=== PATIENT | female | born 1965 | race Caucasian/White ===

== ENCOUNTER 2017-01-17 10:26 | Emergency (ER) | payer OTHER ==
[2017-01-17] MEDS ORDERED: Sodium Chloride 0.9% 1000 ML 1,000 ML IV STA (10:37)
--- NOTE | 2017-01-17 10:42 | ERPHSYRPT ---
- History of Present Illness Time Seen by Provider: 01/17/17 10:40 Source: patient Exam Limitations: no limitations Physician History: elevated blood sugar today, over 600 at home, changed her insulin pump yesterday , no fever, no pain, no NV, not dizzy Allergies/Adverse Reactions: No Known Drug Allergies Allergy (Unverified 01/17/17 10:47) Home Medications: Aspirin EC 81 mg [Ecotrin 81 mg] 81 mg PO DAILY 01/17/17 [History] Biotin 5 mg PO DAILY 01/17/17 [History] Cholecalciferol (Vitamin D3) [D-1999] 2,000 unit PO DAILY 01/17/17 [History] Duloxetine HCl 30 mg [Cymbalta 30 MG Capsule] 30 mg PO DAILY 01/17/17 [ History] Ferrous Sulfate [Iron] 325 mg PO DAILY 01/17/17 [History] Omeprazole 20 MG [Prilosec 20 mg] 20 mg PO DAILY 01/17/17 [History] Ramipril 5 mg [Altace 5 MG] 10 mg PO DAILY 01/17/17 [History] - Review of Systems Constitutional: No Fever Eyes: No Symptoms Ears, Nose, & Throat: No Symptoms Respiratory: No Symptoms Cardiac: No Symptoms Abdominal/Gastrointestinal: No Symptoms Musculoskeletal: No Symptoms Skin: No Symptoms Neurological: No Symptoms Psychological: No Symptoms - Past Medical History Pertinent Past Medical History: Yes Endocrine Medical History: Diabetes Type I - Nursing Vital Signs Nursing Vital Signs: Initial Vital Signs Temperature 97.8 F 01/17/17 10:34 Pulse Rate 96 H 01/17/17 10:34 Respiratory Rate 18 01/17/17 10:34 Blood Pressure 174/107 01/17/17 10:34 O2 Sat by Pulse Oximetry 100 01/17/17 10:34 Pain Scale Pain Intensity 0 - Physical Exam General Appearance: no apparent distress Eye Exam: eyes nml inspection Ears, Nose, Throat Exam: moist mucous membranes Neck Exam: normal inspection Respiratory Exam: No respiratory distress Gastrointestinal/Abdomen Exam: No tenderness Extremity Exam: normal range of motion Neurologic Exam: alert, oriented x 3, cooperative Skin Exam: normal color, warm, dry - Course Nursing assessment & vital signs reviewed: Yes Ordered Tests: Active Orders 24 hr Category Date Time Status ACCUCHECK [Accucheck] STAT Care 01/17/17 10:48 Active IV Insertion STAT Care 01/17/17 10:37 Active CMP Stat Lab 01/17/17 10:50 Completed VENOUS BLOOD GAS Urgent Lab 01/17/17 10:45 Completed Medication Summary Discontinued Medications Generic Name Dose Route Start Last Admin Trade Name Ori PRN Reason Stop Dose Admin Sodium Chloride 1,000 mls @ 999 mls/hr 01/17/17 10:37 01/17/17 11:05 Sodium Chloride 0.9% 1000 Ml IV 01/17/17 11:37 999 mls/hr .Q1H1M STA Administration Sodium Chloride Confirm 01/17/17 10:56 Sodium Chloride 0.9% 1000 Ml Administered 01/17/17 10:57 Dose 1,000 mls @ ud .ROUTE .[facility] ONE Insulin Human Regular 5 unit 01/17/17 11:32 01/17/17 11:53 Novolin R IV 01/17/17 11:33 5 unit STAT ONE Administration Insulin Human Regular Confirm 01/17/17 11:39 Novolin R Administered 01/17/17 11:40 Dose 5 unit .ROUTE .STK-MED ONE Lab/Rad Data: Laboratory Result Diagrams 01/17/17 10:50 Laboratory Results 01/17/17 01/17/17 Range/Units 10:50 10:45 VBG pH 7.34 (7.32-7.42) VBG pCO2 at Pat Temp 55 (42-55) mm/Hg VBG pO2 at Pat Temp 25 (25-40) mm/Hg VBG HCO3 29.7 H* (22-28) meq/L VBG O2 Sat (Tana) 54.8 L (95-100) VBG Base Excess 2.8 H (-2.0-2.0) VBG Hemoglobin 12.5 VBG Carboxyhemoglobin 2.8 (0.0-6.9) % T HGB POC Potassium 5.2 H (3.5-5.1) Sodium 128 L (136-145) mEq/L Potassium 5.0 (3.5-5.1) mEq/L Chloride 89 L (98-107) mEq/L Carbon Dioxide 29.4 (21-32) mEq/L Anion Gap 14.4 (5-15) MEQ/L BUN 17 (9-20) mg/dL Creatinine 1.14 (0.55-1.30) mg/dl Estimated GFR 54 ML/MIN Glucose 711 H* (70-110) MG/DL Calcium 8.9 (8.5-10.1) mg/dL Total Bilirubin 0.30 (0.2-1.0) mg/dL AST 30 (15-37) U/L ALT 60 (12-78) U/L Alkaline Phosphatase 191 H (46-116) U/L Serum Total Protein 7.9 (6.4-8.2) gm/dL Albumin 3.8 (3.4-5.0) g/dL - Progress Progress: improved Discussed with : Mike Will see patient in: office Counseled pt/family regarding: lab results, diagnosis, need for follow-up - Departure Time of Disposition: 13:43 Departure Disposition: Home Clinical Impression: Hyperglycemia Condition: Stable Critical Care Time: No Referrals: ANDERSON CANNON [Primary Care Provider] - Instructions: Hyperglycemia -- Adult Additional Instructions: see your doctor, return if worse, continue present medical regimen
[2017-01-17 10:51] LABS: VBG BASE EXCESS 2.8 (-2.0-2.0); VBG CARBOXYHEMOGLOBIN 2.8 % T HGB (0.0-6.9); VBG HCO3- 29.7 meq/L (22-28); VBG HEMOGLOBIN 12.5; VBG O2 SATURATION 54.8 (95-100); VBG POTASSIUM 5.2 (3.5-5.1); VBG pH 7.34 (7.32-7.42)
[2017-01-17] MEDS ORDERED: Sodium Chloride 0.9% 1000 ML 1,000 ML ONE (10:56)
[2017-01-17 11:20] LABS: ALBUMIN 3.8 g/dL (3.4-5.0); ANION GAP 14.4 MEQ/L (5-15); BILIRUBIN,TOTAL 0.3 mg/dL (0.2-1.0); Carbon Dioxide 29.4 mEq/L (21-32); Total Protein 7.9 gm/dL (6.4-8.2)
[2017-01-17] MEDS ORDERED: NovoLIN R IV ONE (11:32)
[2017-01-17] MEDS ORDERED: NovoLIN R ONE (11:39)
[2017-01-17 14:12] VITALS: BP 126/61; PULSE 92; O2SAT 98
== END 2017-01-17 14:04 | disposition home or self-care (01) ==
LOC: ED 10:26
DX: E10.65 Type 1 diabetes mellitus with hyperglycemia (principal); Z96.41 Presence of insulin pump (external) (internal)
CPT/HCPCS: 36000; 36415; 80053; 82805; 82962; 96360; 96374; 99284; A9270-GY

== ENCOUNTER 2020-02-16 08:16 | Emergency (ER) | payer OTHER ==
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
[2020-02-16 08:56] LABS: Absolute Neutrophil Ct (ANC) 3.45 (1.4-6.9); BASOPHIL % 0.3 % (0.0-0.4); Basophil (Absolute #) 0.02 (0-0.4); Eosinophil % 10.4 % (0.00-5.0); Hematocrit 41.5 % (35-47); Hemoglobin 13.4 gm/dl (12.0-16.0); Lymphocyte (Absolute #) 1.11 (1.0-4.6); Lymphocytes % 19.3 % (24.0-44.0); Mean Cell Volume 87.4 fl (78-100); Mean Corpuscular Hemoglobin 28.2 pg (26-32); Mean Corpuscular Hgb Concent. 32.3 g/dl (32-36); Mean Platelet Volume 9.8 fl (7.5-11.0); Monocyte (Absolute #) 0.58 (0.0-1.3); Monocytes % 10.1 % (0.0-12.0); Neutrophil % 59.9 % (36.0-66.0); Platelet Count 344 K/mm3 (150-450); Red Blood Count 4.75 M/mm3 (4.1-5.4); Red Cell Distribution Width 13.4 % (11.5-14.0); White Blood Count 5.8 K/mm3 (4.0-10.5)
[2020-02-16 09:04] LABS: ALBUMIN 3.8 g/dL (3.5-5.0); ALKALINE PHOSPHATASE 94 U/L (38-126); ANION GAP 9.2 MEQ/L (5-15); BLOOD UREA NITROGEN 16 mg/dL (7-17); CHLORIDE 96 mmol/L (98-107); Calcium 9.2 mg/dL (8.4-10.2); Carbon Dioxide 33 mmol/L (22-30); Creatinine 1 0.54 mg/dL (0.52-1.04); EST GLOMERULAR FILTRATION RATE > 60.0 ML/MIN; Glucose 317 mg/dL (74-106); Potassium 4.7 mmol/L (3.5-5.1); SGOT/AST 40 U/L (14-36); SGPT/ALT 38 U/L (0-35); SODIUM 134 mmol/L (137-145); Total Protein 6.6 g/dL (6.3-8.2)
[2020-02-16 09:43] VITALS: BP 154/83; PULSE 98
[2020-02-16 09:45] VITALS: O2SAT 99
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
== END 2020-02-16 09:52 | disposition home or self-care (01) ==
LOC: ED 08:16
DX: S20.219A Contusion of unspecified front wall of thorax, initial encounter (principal); V43.53XA Car driver injured in collision with pick-up truck in traffic accident, initial encounter; Z79.899 Other long term (current) drug therapy; E10.9 Type 1 diabetes mellitus without complications
CPT/HCPCS: 36000; 36415; 71260; 80053; 84484; 85025; 99285

== ENCOUNTER 2020-07-21 15:59 | Observation (INO) | payer OTHER ==
[2020-07-21] MEDS ORDERED: Sodium Chloride 0.9% 1000 ML 1,000 ML IV STA (16:24)
[2020-07-21] MEDS ORDERED: Zofran 4 MG/2 ML VIAL IV ONE (16:24)
[2020-07-21] MEDS ORDERED: Zofran 4 MG/2 ML VIAL ONE (16:31)
[2020-07-21] MEDS ORDERED: Sodium Chloride 0.9% 1000 ML 1,000 ML ONE (16:31)
[2020-07-21 16:41] LABS: Appearance CLEAR (CLEAR); Bilirubin NEGATIVE (NEGATIVE); Blood NEGATIVE Ery/ul (0-5); Glucose >=500 mg/dL (NEGATIVE); Ketones MODERATE (NEGATIVE); Leukocyte Esterase TRACE (NEGATIVE); Nitrite NEGATIVE (NEGATIVE); Protein,Urine Dip NEGATIVE (Negative); RBC 0-2 /HPF (0-2); Specific Gravity 1.026 (1.005-1.025); Urobilinogen NEGATIVE mg/dL (0-1)
[2020-07-21 16:46] LABS: Lactic Acid 1.5 (0.4-2.0); VBG HCO3- 29.7 meq/L (22-28); VBG HEMOGLOBIN 13.5; VBG O2 SATURATION 54.2 (95-100); VBG POTASSIUM 5.3 (3.5-5.1); VBG pH 7.4 (7.32-7.42)
[2020-07-21 16:47] LABS: Absolute Neutrophil Ct (ANC) 6.34 (1.4-6.9); BASOPHIL % 0.4 % (0.0-0.4); Basophil (Absolute #) 0.04 (0-0.4); Eosinophil % 2.2 % (0.00-5.0); Hematocrit 38.8 % (35-47); Hemoglobin 12.9 gm/dl (12.0-16.0); Lymphocytes % 17.4 % (24.0-44.0); Mean Cell Volume 84.9 fl (78-100); Mean Corpuscular Hemoglobin 28.2 pg (26-32); Mean Corpuscular Hgb Concent. 33.2 g/dl (32-36); Mean Platelet Volume 9.8 fl (7.5-11.0); Monocyte (Absolute #) 1.03 (0.0-1.3); Monocytes % 11.2 % (0.0-12.0); Neutrophil % 68.8 % (36.0-66.0); Platelet Count 396 K/mm3 (150-450); Red Blood Count 4.57 M/mm3 (4.1-5.4); Red Cell Distribution Width 13.4 % (11.5-14.0); White Blood Count 9.2 K/mm3 (4.0-10.5)
--- NOTE | 2020-07-21 16:49 | XRAY ---
Indication: High blood sugar. Dizziness. Comparison: None Portable chest demonstrates normal heart, lungs, and bony thorax.
[2020-07-21 16:53] LABS: ALBUMIN 4.4 g/dL (3.5-5.0); ALKALINE PHOSPHATASE 144 U/L (38-126); ANION GAP 17.7 MEQ/L (5-15); BLOOD UREA NITROGEN 28 mg/dL (7-17); CHLORIDE 86 mmol/L (98-107); Calcium 9.2 mg/dL (8.4-10.2); Carbon Dioxide 28 mmol/L (22-30); Creatinine 1 0.78 mg/dL (0.52-1.04); EST GLOMERULAR FILTRATION RATE > 60.0 ML/MIN; Glucose 466 mg/dL (74-106); Potassium 5.1 mmol/L (3.5-5.1); SGOT/AST 22 U/L (14-36); SGPT/ALT 26 U/L (0-35); SODIUM 126 mmol/L (137-145); Total Protein 6.9 g/dL (6.3-8.2)
[2020-07-21] MEDS ORDERED: HUMULIN R IV STA (18:12)
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
[2020-07-21] MEDS ORDERED: HUMULIN R ONE (19:14)
[2020-07-21 19:24] LABS: INFLUENZA A NEGATIVE (NEGATIVE); INFLUENZA B NEGATIVE (NEGATIVE); RESPIRATORY SYNCTIAL VIRUS NEGATIVE (Negative)
[2020-07-21] MEDS ORDERED: HUMULIN R IV ONE (19:25)
[2020-07-21] MEDS ORDERED: Zofran 4 MG/2 ML VIAL IV PRN (20:47)
[2020-07-21] MEDS ORDERED: DUONEB 0.5-3 MG/3 ml Neb IH PRN (20:47)
[2020-07-21] MEDS ORDERED: HUMALOG SQ PRN (20:47)
[2020-07-21] MEDS ORDERED: MORPHINE SULFATE 2 MG INJ IV PRN (20:47)
[2020-07-21] MEDS ORDERED: TYLENOL 325 MG PO PRN (20:47)
[2020-07-21] MEDS ORDERED: Sodium Chloride 0.9% 1000 ML 1,000 ML IV SCH (20:47)
[2020-07-22] MEDS ORDERED: HUMALOG IV ONE (01:24)
[2020-07-22] MEDS ORDERED: HUMALOG SQ ONE (01:34)
[2020-07-22] MEDS ORDERED: Lantus Insulin SQ ONE (01:36)
[2020-07-22] MEDS ORDERED: HUMALOG SQ PRN (01:57)
[2020-07-22 05:44] LABS: Absolute Neutrophil Ct (ANC) 3.85 (1.4-6.9); BASOPHIL % 0.5 % (0.0-0.4); Basophil (Absolute #) 0.04 (0-0.4); Eosinophil % 7.3 % (0.00-5.0); Eosinophil (Absolute #) 0.64 (0-0.5); Hematocrit 36.8 % (35-47); Lymphocyte (Absolute #) 3.09 (1.0-4.6); Lymphocytes % 35.3 % (24.0-44.0); Mean Cell Volume 85.6 fl (78-100); Mean Corpuscular Hemoglobin 27.9 pg (26-32); Mean Corpuscular Hgb Concent. 32.6 g/dl (32-36); Mean Platelet Volume 9.8 fl (7.5-11.0); Monocyte (Absolute #) 1.14 (0.0-1.3); Neutrophil % 43.9 % (36.0-66.0); Platelet Count 336 K/mm3 (150-450); Red Cell Distribution Width 13.5 % (11.5-14.0); White Blood Count 8.8 K/mm3 (4.0-10.5)
[2020-07-22 06:08] LABS: ANION GAP 9.1 MEQ/L (5-15); BLOOD UREA NITROGEN 20 mg/dL (7-17); CHLORIDE 96 mmol/L (98-107); Calcium 8.6 mg/dL (8.4-10.2); Carbon Dioxide 29 mmol/L (22-30); EST GLOMERULAR FILTRATION RATE > 60.0 ML/MIN; Glucose 183 mg/dL (74-106); SODIUM 129 mmol/L (137-145)
[2020-07-22 07:14] VITALS: BP 123/58; PULSE 83; O2SAT 94
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
[2020-07-22] MEDS ORDERED: PROTONIX 40 MG IV IV SCH (10:00)
== END 2020-07-22 11:43 | disposition home or self-care (01) ==
LOC: ED 15:59 → MED SURG 20:44
PROVIDERS: ADMIT Family Medicine; ATTEND Family Medicine
DX: E10.65 Type 1 diabetes mellitus with hyperglycemia (principal); R53.1 Weakness; Z96.41 Presence of insulin pump (external) (internal); I10 Essential (primary) hypertension; K21.9 Gastro-esophageal reflux disease without esophagitis; R42 Dizziness and giddiness; R11.2 Nausea with vomiting, unspecified; Z79.899 Other long term (current) drug therapy; Z20.828 Contact with and (suspected) exposure to other viral communicable diseases
CPT/HCPCS: 0241U; 36000; 36415; 71045; 80048; 80053; 81001; 82805; 82947; 83605; 83735; 84484; 85025; 93005; 93041; 93268; 94760; 96360; 96374; 99284; G0378; 96375; J1815; J1817; J2405; A9270-GY

== ENCOUNTER 2021-08-10 22:56 | Observation (INO) | payer OTHER ==
[2021-08-10] MEDS ORDERED: Sodium Chloride 0.9% 1000 ML 1,000 ML IV STA (23:29)
[2021-08-10] MEDS ORDERED: Sodium Chloride 0.9% 1000 ML 1,000 ML ONE (23:40)
[2021-08-10 23:43] LABS: Absolute Neutrophil Ct (ANC) 9.15 x10^3/uL (1.4-6.9); Basophil (Absolute #) 0.03 x10^3/uL (0-0.4); Eosinophil % 0.1 % (0.00-5.0); Eosinophil (Absolute #) 0.01 x10^3/uL (0-0.5); Hematocrit 35.1 % (35-47); Hemoglobin 11.5 g/dL (12.0-16.0); Lymphocyte (Absolute #) 0.45 x10^3/uL (1.0-4.6); Lymphocytes % 4.4 % (24.0-44.0); Mean Cell Volume 86.2 fL (78-100); Mean Corpuscular Hemoglobin 28.3 pg (26-32); Mean Corpuscular Hgb Concent. 32.8 g/dL (32-36); Monocyte (Absolute #) 0.59 x10^3/uL (0.0-1.3); Monocytes % 5.7 % (0.0-12.0); Platelet Count 336 x10^3/uL (150-450); Red Blood Count 4.07 x10^6/uL (4.1-5.4); White Blood Count 10.3 x10^3/uL (4.0-10.5)
[2021-08-11 00:03] LABS: ALBUMIN 4.2 g/dL (3.5-5.0); ALKALINE PHOSPHATASE 126 U/L (38-126); ANION GAP 33.4 MEQ/L (5-15); BLOOD UREA NITROGEN 30 mg/dL (7-17); CHLORIDE 91 mmol/L (98-107); Calcium 9.4 mg/dL (8.4-10.2); Creatinine 1 0.96 mg/dL (0.52-1.04); EST GLOMERULAR FILTRATION RATE > 60.0 ML/MIN; Potassium 4.6 mmol/L (3.5-5.1); SGOT/AST 24 U/L (14-36); SGPT/ALT 26 U/L (0-35); SODIUM 133 mmol/L (137-145); Total Protein 6.7 g/dL (6.3-8.2)
[2021-08-11 00:24] LABS: Carbon Dioxide 13 mmol/L (22-30); Glucose 623 mg/dL (74-106)
[2021-08-11] MEDS ORDERED: HUMULIN R 100 UNIT in Sodium Chloride 0.9% 100 ML IV PRN (00:45)
[2021-08-11] MEDS ORDERED: Sodium Chloride 0.9% 1000 ML 1,000 ML IV SCH (00:45)
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
[2021-08-11] MEDS ORDERED: HUMULIN R ONE (01:31)
[2021-08-11] MEDS ORDERED: Sodium Chloride 0.9% 100 ML ONE (01:31)
[2021-08-11 01:38] LABS: MAGNESIUM 2.1 mg/dL (1.6-2.3); PHOSPHOROUS 5.6 mg/dL (2.5-4.5)
[2021-08-11 01:46] LABS: INFLUENZA A NEGATIVE (NEGATIVE); INFLUENZA B NEGATIVE (NEGATIVE); RESPIRATORY SYNCTIAL VIRUS NEGATIVE (Negative); SARS-CoV-2 Xpert Express NEGATIVE (NEGATIVE)
[2021-08-11 02:45] LABS: VBG BASE EXCESS -1.3 (-2.0-2.0); VBG CARBOXYHEMOGLOBIN 2.8 % T HGB (0.0-6.9); VBG HCO3- 22.7 meq/L (22-28); VBG HEMOGLOBIN 11.5; VBG O2 SATURATION 99.4 (95-100); VBG POTASSIUM 4.3 (3.5-5.1); VBG pH 7.42 (7.32-7.42)
[2021-08-11 02:46] LABS: Appearance CLEAR (CLEAR); Bilirubin NEGATIVE (NEGATIVE); Dipstick done @ ? MAIN LAB; Glucose 500 mg/dL (NEGATIVE); Ketones LARGE-80 (NEGATIVE); Nitrite NEGATIVE (NEGATIVE); Protein,Urine Dip NEGATIVE (Negative); RBC NEGATIVE Ery/ul (0-5); Specific Gravity 1.02 (1.005-1.025); Urobilinogen 0.2 mg/dL (0-1)
[2021-08-11 02:48] LABS: ANION GAP 18.3 MEQ/L (5-15); BLOOD UREA NITROGEN 27 mg/dL (7-17); CHLORIDE 98 mmol/L (98-107); Calcium 8.6 mg/dL (8.4-10.2); Carbon Dioxide 22 mmol/L (22-30); Creatinine 1 0.69 mg/dL (0.52-1.04); EST GLOMERULAR FILTRATION RATE > 60.0 ML/MIN; Glucose 346 mg/dL (74-106); Potassium 4.3 mmol/L (3.5-5.1); SODIUM 134 mmol/L (137-145)
[2021-08-11 02:50] LABS: WBC 0-2 /HPF (0-5)
[2021-08-11] MEDS ORDERED: MORPHINE SULFATE 2 MG INJ IV PRN (02:59)
[2021-08-11] MEDS ORDERED: Zofran 4 MG/2 ML VIAL IV PRN (02:59)
[2021-08-11] MEDS ORDERED: TYLENOL 325 MG PO PRN (02:59)
[2021-08-11 03:03] LABS: Urine Cultured Indicated? NO
[2021-08-11 04:14] LABS: Slide Review 1 YES
[2021-08-11 04:27] LABS: Absolute Neutrophil Ct (ANC) 8.38 x10^3/uL (1.4-6.9); Basophil (Absolute #) 0.04 x10^3/uL (0-0.4); Eosinophil % 0.1 % (0.00-5.0); Eosinophil (Absolute #) 0.01 x10^3/uL (0-0.5); Hematocrit 31.5 % (35-47); Hemoglobin 10.8 g/dL (12.0-16.0); Lymphocyte (Absolute #) 1.68 x10^3/uL (1.0-4.6); Lymphocytes % 15.1 % (24.0-44.0); Mean Cell Volume 83.3 fL (78-100); Mean Corpuscular Hemoglobin 28.6 pg (26-32); Mean Corpuscular Hgb Concent. 34.3 g/dL (32-36); Mean Platelet Volume 9.9 fL (7.5-11.0); Monocyte (Absolute #) 0.99 x10^3/uL (0.0-1.3); Monocytes % 8.9 % (0.0-12.0); Neutrophil % 75.1 % (36.0-66.0); Platelet Count 328 x10^3/uL (150-450); Red Blood Count 3.78 x10^6/uL (4.1-5.4); White Blood Count 11.1 x10^3/uL (4.0-10.5)
[2021-08-11 04:42] LABS: VBG CARBOXYHEMOGLOBIN 1.6 % T HGB (0.0-6.9); VBG HCO3- 28.5 meq/L (22-28); VBG HEMOGLOBIN 11.5; VBG O2 SATURATION 53.2 (95-100); VBG POTASSIUM 4.8 (3.5-5.1); VBG pH 7.4 (7.32-7.42)
[2021-08-11 04:57] LABS: ALBUMIN 3.4 g/dL (3.5-5.0); ALKALINE PHOSPHATASE 102 U/L (38-126); ANION GAP 13.3 MEQ/L (5-15); BLOOD UREA NITROGEN 26 mg/dL (7-17); CHLORIDE 97 mmol/L (98-107); Calcium 8.6 mg/dL (8.4-10.2); Carbon Dioxide 29 mmol/L (22-30); Creatinine 1 0.67 mg/dL (0.52-1.04); EST GLOMERULAR FILTRATION RATE > 60.0 ML/MIN; Glucose 260 mg/dL (74-106); Potassium 4.5 mmol/L (3.5-5.1); SGOT/AST 21 U/L (14-36); SGPT/ALT 21 U/L (0-35); SODIUM 134 mmol/L (137-145); Total Protein 6.3 g/dL (6.3-8.2)
[2021-08-11] MEDS ORDERED: D5W/0.45NS W/ 20mEq KCl 1000 ML 1,000 ML IV SCH (05:00)
[2021-08-11 08:51] LABS: ANION GAP 7.5 MEQ/L (5-15); BLOOD UREA NITROGEN 23 mg/dL (7-17); CHLORIDE 99 mmol/L (98-107); Calcium 8.7 mg/dL (8.4-10.2); Carbon Dioxide 33 mmol/L (22-30); Creatinine 1 0.57 mg/dL (0.52-1.04); EST GLOMERULAR FILTRATION RATE > 60.0 ML/MIN; Glucose 110 mg/dL (74-106); Potassium 3.8 mmol/L (3.5-5.1); SODIUM 136 mmol/L (137-145)
[2021-08-11] MEDS ORDERED: D50W 50 ml Abboject IV PRN (09:39)
[2021-08-11] MEDS ORDERED: GlucaGen 1 MG IM PRN (09:39)
[2021-08-11] MEDS ORDERED: Glutose 15 GM ORAL GEL PO PRN (09:39)
--- NOTE | 2021-08-11 09:39 | PCM.SSS ---
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 (0.0-6.9) % T HGB POC Potassium (3.5-5.1) Sodium 133 L (137-145) mmol/L Potassium 4.6 (3.5-5.1) mmol/L Chloride 91 L (98-107) mmol/L Carbon Dioxide 13 L* (22-30) mmol/L Anion Gap 33.4 H (5-15) MEQ/L BUN 30 H (7-17) mg/dL Creatinine 0.96 (0.52-1.04) mg/dL Estimated GFR > 60.0 ML/MIN Glucose 623 H* (74-106) mg/dL POC Glucometer (74 to 106) mg/dL Calcium 9.4 (8.4-10.2) mg/dL Phosphorus (2.5-4.5) mg/dL Magnesium (1.6-2.3) mg/dL Total Bilirubin 0.50 (0.2-1.3) mg/dL AST 24 (14-36) U/L ALT 26 (0-35) U/L Alkaline Phosphatase 126 (38-126) U/L Troponin I < 0.012 (0.000-0.034) ng/mL Serum Total Protein 6.7 (6.3-8.2) g/dL Albumin 4.2 (3.5-5.0) g/dL Urinalys Dipstick Clnc Urine Color (YELLOW) Urine Appearance (CLEAR) Urine pH (5-6) Ur Specific [place] (1.005-1.025) POC Urine Protein Conf (Negative) Urine Ketones (NEGATIVE) Urine Nitrite (NEGATIVE) Urine Bilirubin (NEGATIVE) Urine Urobilinogen (0-1) mg/dL Urine Leukocytes (NEGATIVE) Urine WBC (Auto) (0-5) /HPF Urine RBC (Auto) (0-2) /HPF U Epithel Cells (Auto) (FEW) /HPF Urine Bacteria (Auto) (NEGATIVE) /HPF Urine RBC (0-5) Kevin/ul Ur Culture Indicated? Urine Glucose (NEGATIVE) mg/dL Influenza Type A Ag (NEGATIVE) Influenza Type B Ag (NEGATIVE) RSV (PCR) (Negative) SARS-CoV-2 (PCR) (NEGATIVE) Slides for Path Review YES 08/11/21 08/11/21 08/11/21 Range/Units 01:05 01:19 01:26 WBC (4.0-10.5) x10^3/uL RBC (4.1-5.4) x10^6/uL Hgb (12.0-16.0) g/dL Hct (35-47) % MCV (78-100) fL MCH (26-32) pg MCHC (32-36) g/dL RDW (11.5-14.0) % Plt Count (150-450) x10^3/uL MPV (7.5-11.0) fL Gran % (36.0-66.0) % Immature Gran % (Auto) (0.00-0.4) % Nucleat RBC Rel Count (0.00-0.1) % Eos # (Auto) (0-0.5) x10^3/uL Immature Gran # (Auto) (0.00-0.03) x10^3u/L Absolute Lymphs (auto) (1.0-4.6) x10^3/uL Absolute Monos (auto) (0.0-1.3) x10^3/uL Absolute Nucleated RBC (0.00-0.01) x10^3u/L Lymphocytes % (24.0-44.0) % Monocytes % (0.0-12.0) % Eosinophils % (0.00-5.0) % Basophils % (0.0-0.4) % Absolute Granulocytes (1.4-6.9) x10^3/uL Basophils # (0-0.4) x10^3/uL pO2/FiO2 Ratio % VBG pH (7.32-7.42) VBG pCO2 at Pat Temp (42-55) mm/Hg VBG pO2 at Pat Temp (25-40) mm/Hg VBG HCO3 (22-28) meq/L VBG O2 Sat (Tana) (95-100) VBG Base Excess (-2.0-2.0) VBG Hemoglobin VBG Carboxyhemoglobin (0.0-6.9) % T HGB POC Potassium (3.5-5.1) Sodium (137-145) mmol/L Potassium (3.5-5.1) mmol/L Chloride (98-107) mmol/L Carbon Dioxide (22-30) mmol/L Anion Gap (5-15) MEQ/L BUN (7-17) mg/dL Creatinine (0.52-1.04) mg/dL Estimated GFR ML/MIN Glucose (74-106) mg/dL POC Glucometer 414 H (74 to 106) mg/dL Calcium (8.4-10.2) mg/dL Phosphorus (2.5-4.5) mg/dL Magnesium (1.6-2.3) mg/dL Total Bilirubin (0.2-1.3) mg/dL AST (14-36) U/L ALT (0-35) U/L Alkaline Phosphatase (38-126) U/L Troponin I (0.000-0.034) ng/mL Serum Total Protein (6.3-8.2) g/dL Albumin (3.5-5.0) g/dL Urinalys Dipstick Clnc MAIN LAB Urine Color YELLOW (YELLOW) Urine Appearance CLEAR (CLEAR) Urine pH 5.0 (5-6) Ur Specific [place] 1.02 (1.005-1.025) POC Urine Protein Conf NEGATIVE (Negative) Urine Ketones LARGE-80 (NEGATIVE) Urine Nitrite NEGATIVE (NEGATIVE) Urine Bilirubin NEGATIVE (NEGATIVE) Urine Urobilinogen 0.2 (0-1) mg/dL Urine Leukocytes NEGATIVE (NEGATIVE) Urine WBC (Auto) 0-2 (0-5) /HPF Urine RBC (Auto) NONE (0-2) /HPF U Epithel Cells (Auto) NONE (FEW) /HPF Urine Bacteria (Auto) NONE (NEGATIVE) /HPF Urine RBC NEGATIVE (0-5) Kevin/ul Ur Culture Indicated? NO Urine Glucose 500 (NEGATIVE) mg/dL Influenza Type A Ag NEGATIVE (NEGATIVE) Influenza Type B Ag NEGATIVE (NEGATIVE) RSV (PCR) NEGATIVE (Negative) SARS-CoV-2 (PCR) NEGATIVE (NEGATIVE) Slides for Path Review 08/11/21 08/11/21 08/11/21 Range/Units 01:30 02:24 02:34 WBC (4.0-10.5) x10^3/uL RBC (4.1-5.4) x10^6/uL Hgb (12.0-16.0) g/dL Hct (35-47) % MCV (78-100) fL MCH (26-32) pg MCHC (32-36) g/dL RDW (11.5-14.0) % Plt Count (150-450) x10^3/uL MPV (7.5-11.0) fL Gran % (36.0-66.0) % Immature Gran % (Auto) (0.00-0.4) % Nucleat RBC Rel Count (0.00-0.1) % Eos # (Auto) (0-0.5) x10^3/uL Immature Gran # (Auto) (0.00-0.03) x10^3u/L Absolute Lymphs (auto) (1.0-4.6) x10^3/uL Absolute Monos (auto) (0.0-1.3) x10^3/uL Absolute Nucleated RBC (0.00-0.01) x10^3u/L Lymphocytes % (24.0-44.0) % Monocytes % (0.0-12.0) % Eosinophils % (0.00-5.0) % Basophils % (0.0-0.4) % Absolute Granulocytes (1.4-6.9) x10^3/uL Basophils # (0-0.4) x10^3/uL pO2/FiO2 Ratio % VBG pH (7.32-7.42) VBG pCO2 at Pat Temp (42-55) mm/Hg VBG pO2 at Pat Temp (25-40) mm/Hg VBG HCO3 (22-28) meq/L VBG O2 Sat (Tana) (95-100) VBG Base Excess (-2.0-2.0) VBG Hemoglobin VBG Carboxyhemoglobin (0.0-6.9) % T HGB POC Potassium (3.5-5.1) Sodium (137-145) mmol/L Potassium (3.5-5.1) mmol/L Chloride (98-107) mmol/L Carbon Dioxide (22-30) mmol/L Anion Gap (5-15) MEQ/L BUN (7-17) mg/dL Creatinine (0.52-1.04) mg/dL Estimated GFR ML/MIN Glucose (74-106) mg/dL POC Glucometer 352 H (74 to 106) mg/dL Calcium (8.4-10.2) mg/dL Phosphorus 5.6 H (2.5-4.5) mg/dL Magnesium 2.1 (1.6-2.3) mg/dL Total Bilirubin (0.2-1.3) mg/dL AST (14-36) U/L ALT (0-35) U/L Alkaline Phosphatase (38-126) U/L Troponin I < 0.012 (0.000-0.034) ng/mL Serum Total Protein (6.3-8.2) g/dL Albumin (3.5-5.0) g/dL Urinalys Dipstick Clnc Urine Color (YELLOW) Urine Appearance (CLEAR) Urine pH (5-6) Ur Specific [place] (1.005-1.025) POC Urine Protein Conf (Negative) Urine Ketones (NEGATIVE) Urine Nitrite (NEGATIVE) Urine Bilirubin (NEGATIVE) Urine Urobilinogen (0-1) mg/dL Urine Leukocytes (NEGATIVE) Urine WBC (Auto) (0-5) /HPF Urine RBC (Auto) (0-2) /HPF U Epithel Cells (Auto) (FEW) /HPF Urine Bacteria (Auto) (NEGATIVE) /HPF Urine RBC (0-5) Kevin/ul Ur Culture Indicated? Urine Glucose (NEGATIVE) mg/dL Influenza Type A Ag (NEGATIVE) Influenza Type B Ag (NEGATIVE) RSV (PCR) (Negative) SARS-CoV-2 (PCR) (NEGATIVE) Slides for Path Review 08/11/21 08/11/21 08/11/21 Range/Units 02:34 02:44 03:09 WBC (4.0-10.5) x10^3/uL RBC (4.1-5.4) x10^6/uL Hgb (12.0-16.0) g/dL Hct (35-47) % MCV (78-100) fL MCH (26-32) pg MCHC (32-36) g/dL RDW (11.5-14.0) % Plt Count (150-450) x10^3/uL MPV (7.5-11.0) fL Gran % (36.0-66.0) % Immature Gran % (Auto) (0.00-0.4) % Nucleat RBC Rel Count (0.00-0.1) % Eos # (Auto) (0-0.5) x10^3/uL Immature Gran # (Auto) (0.00-0.03) x10^3u/L Absolute Lymphs (auto) (1.0-4.6) x10^3/uL Absolute Monos (auto) (0.0-1.3) x10^3/uL Absolute Nucleated RBC (0.00-0.01) x10^3u/L Lymphocytes % (24.0-44.0) % Monocytes % (0.0-12.0) % Eosinophils % (0.00-5.0) % Basophils % (0.0-0.4) % Absolute Granulocytes (1.4-6.9) x10^3/uL Basophils # (0-0.4) x10^3/uL pO2/FiO2 Ratio 21.0 % VBG pH 7.42 (7.32-7.42) VBG pCO2 at Pat Temp 35 L (42-55) mm/Hg VBG pO2 at Pat Temp 96 H (25-40) mm/Hg VBG HCO3 22.7 (22-28) meq/L VBG O2 Sat (Tana) 99.4 (95-100) VBG Base Excess -1.3 (-2.0-2.0) VBG Hemoglobin 11.5 VBG Carboxyhemoglobin 2.8 (0.0-6.9) % T HGB POC Potassium 4.3 (3.5-5.1) Sodium 134 L (137-145) mmol/L Potassium 4.3 (3.5-5.1) mmol/L Chloride 98 (98-107) mmol/L Carbon Dioxide 22 (22-30) mmol/L Anion Gap 18.3 H (5-15) MEQ/L BUN 27 H (7-17) mg/dL Creatinine 0.69 (0.52-1.04) mg/dL Estimated GFR > 60.0 ML/MIN Glucose 346 H (74-106) mg/dL POC Glucometer 277 H (74 to 106) mg/dL Calcium 8.6 (8.4-10.2) mg/dL Phosphorus (2.5-4.5) mg/dL Magnesium (1.6-2.3) mg/dL Total Bilirubin (0.2-1.3) mg/dL AST (14-36) U/L ALT (0-35) U/L Alkaline Phosphatase (38-126) U/L Troponin I (0.000-0.034) ng/mL Serum Total Protein (6.3-8.2) g/dL Albumin (3.5-5.0) g/dL Urinalys Dipstick Clnc Urine Color (YELLOW) Urine Appearance (CLEAR) Urine pH (5-6) Ur Specific [place] (1.005-1.025) POC Urine Protein Conf (Negative) Urine Ketones (NEGATIVE) Urine Nitrite (NEGATIVE) Urine Bilirubin (NEGATIVE) Urine Urobilinogen (0-1) mg/dL Urine Leukocytes (NEGATIVE) Urine WBC (Auto) (0-5) /HPF Urine RBC (Auto) (0-2) /HPF U Epithel Cells (Auto) (FEW) /HPF Urine Bacteria (Auto) (NEGATIVE) /HPF Urine RBC (0-5) Kevin/ul Ur Culture Indicated? Urine Glucose (NEGATIVE) mg/dL Influenza Type A Ag (NEGATIVE) Influenza Type B Ag (NEGATIVE) RSV (PCR) (Negative) SARS-CoV-2 (PCR) (NEGATIVE) Slides for Path Review 08/11/21 08/11/21 08/11/21 Range/Units 03:57 04:20 04:20 WBC 11.1 H (4.0-10.5) x10^3/uL RBC 3.78 L (4.1-5.4) x10^6/uL Hgb 10.8 L (12.0-16.0) g/dL Hct 31.5 L (35-47) % MCV 83.3 (78-100) fL MCH 28.6 (26-32) pg MCHC 34.3 (32-36) g/dL RDW 13.0 (11.5-14.0) % Plt Count 328 (150-450) x10^3/uL MPV 9.9 (7.5-11.0) fL Gran % 75.1 H (36.0-66.0) % Immature Gran % (Auto) 0.4 (0.00-0.4) % Nucleat RBC Rel Count 0.0 (0.00-0.1) % Eos # (Auto) 0.01 (0-0.5) x10^3/uL Immature Gran # (Auto) 0.04 H (0.00-0.03) x10^3u/L Absolute Lymphs (auto) 1.68 (1.0-4.6) x10^3/uL Absolute Monos (auto) 0.99 (0.0-1.3) x10^3/uL Absolute Nucleated RBC 0.00 (0.00-0.01) x10^3u/L Lymphocytes % 15.1 L (24.0-44.0) % Monocytes % 8.9 (0.0-12.0) % Eosinophils % 0.1 (0.00-5.0) % Basophils % 0.4 (0.0-0.4) % Absolute Granulocytes 8.38 H (1.4-6.9) x10^3/uL Basophils # 0.04 (0-0.4) x10^3/uL pO2/FiO2 Ratio % VBG pH (7.32-7.42) VBG pCO2 at Pat Temp (42-55) mm/Hg VBG pO2 at Pat Temp (25-40) mm/Hg VBG HCO3 (22-28) meq/L VBG O2 Sat (Tana) (95-100) VBG Base Excess (-2.0-2.0) VBG Hemoglobin VBG Carboxyhemoglobin (0.0-6.9) % T HGB POC Potassium (3.5-5.1) Sodium (137-145) mmol/L Potassium (3.5-5.1) mmol/L Chloride (98-107) mmol/L Carbon Dioxide (22-30) mmol/L Anion Gap (5-15) MEQ/L BUN (7-17) mg/dL Creatinine (0.52-1.04) mg/dL Estimated GFR ML/MIN Glucose (74-106) mg/dL POC Glucometer 237 H (74 to 106) mg/dL Calcium (8.4-10.2) mg/dL Phosphorus (2.5-4.5) mg/dL Magnesium (1.6-2.3) mg/dL Total Bilirubin (0.2-1.3) mg/dL AST (14-36) U/L ALT (0-35) U/L Alkaline Phosphatase (38-126) U/L Troponin I < 0.012 (0.000-0.034) ng/mL Serum Total Protein (6.3-8.2) g/dL Albumin (3.5-5.0) g/dL Urinalys Dipstick Clnc Urine Color (YELLOW) Urine Appearance (CLEAR) Urine pH (5-6) Ur Specific [place] (1.005-1.025) POC Urine Protein Conf (Negative) Urine Ketones (NEGATIVE) Urine Nitrite (NEGATIVE) Urine Bilirubin (NEGATIVE) Urine Urobilinogen (0-1) mg/dL Urine Leukocytes (NEGATIVE) Urine WBC (Auto) (0-5) /HPF Urine RBC (Auto) (0-2) /HPF U Epithel Cells (Auto) (FEW) /HPF Urine Bacteria (Auto) (NEGATIVE) /HPF Urine RBC (0-5) Kevin/ul Ur Culture Indicated? Urine Glucose (NEGATIVE) mg/dL Influenza Type A Ag (NEGATIVE) Influenza Type B Ag (NEGATIVE) RSV (PCR) (Negative) SARS-CoV-2 (PCR) (NEGATIVE) Slides for Path Review 08/11/21 08/11/21 08/11/21 Range/Units 04:20 04:20 04:58 WBC (4.0-10.5) x10^3/uL RBC (4.1-5.4) x10^6/uL Hgb (12.0-16.0) g/dL Hct (35-47) % MCV (78-100) fL MCH (26-32) pg MCHC (32-36) g/dL RDW (11.5-14.0) % Plt Count (150-450) x10^3/uL MPV (7.5-11.0) fL Gran % (36.0-66.0) % Immature Gran % (Auto) (0.00-0.4) % Nucleat RBC Rel Count (0.00-0.1) % Eos # (Auto) (0-0.5) x10^3/uL Immature Gran # (Auto) (0.00-0.03) x10^3u/L Absolute Lymphs (auto) (1.0-4.6) x10^3/uL Absolute Monos (auto) (0.0-1.3) x10^3/uL Absolute Nucleated RBC (0.00-0.01) x10^3u/L Lymphocytes % (24.0-44.0) % Monocytes % (0.0-12.0) % Eosinophils % (0.00-5.0) % Basophils % (0.0-0.4) % Absolute Granulocytes (1.4-6.9) x10^3/uL Basophils # (0-0.4) x10^3/uL pO2/FiO2 Ratio 21.0 % VBG pH 7.40 (7.32-7.42) VBG pCO2 at Pat Temp 46 (42-55) mm/Hg VBG pO2 at Pat Temp 35 (25-40) mm/Hg VBG HCO3 28.5 H (22-28) meq/L VBG O2 Sat (Tana) 53.2 L (95-100) VBG Base Excess 3.0 H (-2.0-2.0) VBG Hemoglobin 11.5 VBG Carboxyhemoglobin 1.6 (0.0-6.9) % T HGB POC Potassium 4.8 (3.5-5.1) Sodium 134 L (137-145) mmol/L Potassium 4.5 (3.5-5.1) mmol/L Chloride 97 L (98-107) mmol/L Carbon Dioxide 29 (22-30) mmol/L Anion Gap 13.3 (5-15) MEQ/L BUN 26 H (7-17) mg/dL Creatinine 0.67 (0.52-1.04) mg/dL Estimated GFR > 60.0 ML/MIN Glucose 260 H (74-106) mg/dL POC Glucometer 193 H (74 to 106) mg/dL Calcium 8.6 (8.4-10.2) mg/dL Phosphorus (2.5-4.5) mg/dL Magnesium (1.6-2.3) mg/dL Total Bilirubin 0.40 (0.2-1.3) mg/dL AST 21 (14-36) U/L ALT 21 (0-35) U/L Alkaline Phosphatase 102 (38-126) U/L Troponin I (0.000-0.034) ng/mL Serum Total Protein 6.3 (6.3-8.2) g/dL Albumin 3.4 L (3.5-5.0) g/dL Urinalys Dipstick Clnc Urine Color (YELLOW) Urine Appearance (CLEAR) Urine pH (5-6) Ur Specific [place] (1.005-1.025) POC Urine Protein Conf (Negative) Urine Ketones (NEGATIVE) Urine Nitrite (NEGATIVE) Urine Bilirubin (NEGATIVE) Urine Urobilinogen (0-1) mg/dL Urine Leukocytes (NEGATIVE) Urine WBC (Auto) (0-5) /HPF Urine RBC (Auto) (0-2) /HPF U Epithel Cells (Auto) (FEW) /HPF Urine Bacteria (Auto) (NEGATIVE) /HPF Urine RBC (0-5) Kevin/ul Ur Culture Indicated? Urine Glucose (NEGATIVE) mg/dL Influenza Type A Ag (NEGATIVE) Influenza Type B Ag (NEGATIVE) RSV (PCR) (Negative) SARS-CoV-2 (PCR) (NEGATIVE) Slides for Path Review 08/11/21 08/11/21 08/11/21 Range/Units 05:56 06:56 07:23 WBC (4.0-10.5) x10^3/uL RBC (4.1-5.4) x10^6/uL Hgb (12.0-16.0) g/dL Hct (35-47) % MCV (78-100) fL MCH (26-32) pg MCHC (32-36) g/dL RDW (11.5-14.0) % Plt Count (150-450) x10^3/uL MPV (7.5-11.0) fL Gran % (36.0-66.0) % Immature Gran % (Auto) (0.00-0.4) % Nucleat RBC Rel Count (0.00-0.1) % Eos # (Auto) (0-0.5) x10^3/uL Immature Gran # (Auto) (0.00-0.03) x10^3u/L Absolute Lymphs (auto) (1.0-4.6) x10^3/uL Absolute Monos (auto) (0.0-1.3) x10^3/uL Absolute Nucleated RBC (0.00-0.01) x10^3u/L Lymphocytes % (24.0-44.0) % Monocytes % (0.0-12.0) % Eosinophils % (0.00-5.0) % Basophils % (0.0-0.4) % Absolute Granulocytes (1.4-6.9) x10^3/uL Basophils # (0-0.4) x10^3/uL pO2/FiO2 Ratio % VBG pH (7.32-7.42) VBG pCO2 at Pat Temp (42-55) mm/Hg VBG pO2 at Pat Temp (25-40) mm/Hg VBG HCO3 (22-28) meq/L VBG O2 Sat (Tana) (95-100) VBG Base Excess (-2.0-2.0) VBG Hemoglobin VBG Carboxyhemoglobin (0.0-6.9) % T HGB POC Potassium (3.5-5.1) Sodium (137-145) mmol/L Potassium (3.5-5.1) mmol/L Chloride (98-107) mmol/L Carbon Dioxide (22-30) mmol/L Anion Gap (5-15) MEQ/L BUN (7-17) mg/dL Creatinine (0.52-1.04) mg/dL Estimated GFR ML/MIN Glucose (74-106) mg/dL POC Glucometer 196 H 154 H 152 H (74 to 106) mg/dL Calcium (8.4-10.2) mg/dL Phosphorus (2.5-4.5) mg/dL Magnesium (1.6-2.3) mg/dL Total Bilirubin (0.2-1.3) mg/dL AST (14-36) U/L ALT (0-35) U/L Alkaline Phosphatase (38-126) U/L Troponin I (0.000-0.034) ng/mL Serum Total Protein (6.3-8.2) g/dL Albumin (3.5-5.0) g/dL Urinalys Dipstick Clnc Urine Color (YELLOW) Urine Appearance (CLEAR) Urine pH (5-6) Ur Specific [place] (1.005-1.025) POC Urine Protein Conf (Negative) Urine Ketones (NEGATIVE) Urine Nitrite (NEGATIVE) Urine Bilirubin (NEGATIVE) Urine Urobilinogen (0-1) mg/dL Urine Leukocytes (NEGATIVE) Urine WBC (Auto) (0-5) /HPF Urine RBC (Auto) (0-2) /HPF U Epithel Cells (Auto) (FEW) /HPF Urine Bacteria (Auto) (NEGATIVE) /HPF Urine RBC (0-5) Kevin/ul Ur Culture Indicated? Urine Glucose (NEGATIVE) mg/dL Influenza Type A Ag (NEGATIVE) Influenza Type B Ag (NEGATIVE) RSV (PCR) (Negative) SARS-CoV-2 (PCR) (NEGATIVE) Slides for Path Review 08/11/21 08/11/21 08/11/21 Range/Units 08:25 08:25 09:19 WBC (4.0-10.5) x10^3/uL RBC (4.1-5.4) x10^6/uL Hgb (12.0-16.0) g/dL Hct (35-47) % MCV (78-100) fL MCH (26-32) pg MCHC (32-36) g/dL RDW (11.5-14.0) % Plt Count (150-450) x10^3/uL MPV (7.5-11.0) fL Gran % (36.0-66.0) % Immature Gran % (Auto) (0.00-0.4) % Nucleat RBC Rel Count (0.00-0.1) % Eos # (Auto) (0-0.5) x10^3/uL Immature Gran # (Auto) (0.00-0.03) x10^3u/L Absolute Lymphs (auto) (1.0-4.6) x10^3/uL Absolute Monos (auto) (0.0-1.3) x10^3/uL Absolute Nucleated RBC (0.00-0.01) x10^3u/L Lymphocytes % (24.0-44.0) % Monocytes % (0.0-12.0) % Eosinophils % (0.00-5.0) % Basophils % (0.0-0.4) % Absolute Granulocytes (1.4-6.9) x10^3/uL Basophils # (0-0.4) x10^3/uL pO2/FiO2 Ratio % VBG pH (7.32-7.42) VBG pCO2 at Pat Temp (42-55) mm/Hg VBG pO2 at Pat Temp (25-40) mm/Hg VBG HCO3 (22-28) meq/L VBG O2 Sat (Tana) (95-100) VBG Base Excess (-2.0-2.0) VBG Hemoglobin VBG Carboxyhemoglobin (0.0-6.9) % T HGB POC Potassium (3.5-5.1) Sodium 136 L (137-145) mmol/L Potassium 3.8 (3.5-5.1) mmol/L Chloride 99 (98-107) mmol/L Carbon Dioxide 33 H (22-30) mmol/L Anion Gap 7.5 (5-15) MEQ/L BUN 23 H (7-17) mg/dL Creatinine 0.57 (0.52-1.04) mg/dL Estimated GFR > 60.0 ML/MIN Glucose 110 H (74-106) mg/dL POC Glucometer 70 L (74 to 106) mg/dL Calcium 8.7 (8.4-10.2) mg/dL Phosphorus (2.5-4.5) mg/dL Magnesium (1.6-2.3) mg/dL Total Bilirubin (0.2-1.3) mg/dL AST (14-36) U/L ALT (0-35) U/L Alkaline Phosphatase (38-126) U/L Troponin I < 0.012 (0.000-0.034) ng/mL Serum Total Protein (6.3-8.2) g/dL Albumin (3.5-5.0) g/dL Urinalys Dipstick Clnc Urine Color (YELLOW) Urine Appearance (CLEAR) Urine pH (5-6) Ur Specific [place] (1.005-1.025) POC Urine Protein Conf (Negative) Urine Ketones (NEGATIVE) Urine Nitrite (NEGATIVE) Urine Bilirubin (NEGATIVE) Urine Urobilinogen (0-1) mg/dL Urine Leukocytes (NEGATIVE) Urine WBC (Auto) (0-5) /HPF Urine RBC (Auto) (0-2) /HPF U Epithel Cells (Auto) (FEW) /HPF Urine Bacteria (Auto) (NEGATIVE) /HPF Urine RBC (0-5) Kevin/ul Ur Culture Indicated? Urine Glucose (NEGATIVE) mg/dL Influenza Type A Ag (NEGATIVE) Influenza Type B Ag (NEGATIVE) RSV (PCR) (Negative) SARS-CoV-2 (PCR) (NEGATIVE) Slides for Path Review Micro Results-Entire Visit: Accuchecks Date 08/11/21 Date 08/11/21 Date 08/11/21 Date 08/11/21 Date 08/10/21 Time 09:23 Time 07:54 Time 07:54 Time 01:20 - Discharge Disposition: Home, Self-Care Condition: Stable Prescriptions: New Insulin Lispro [Admelog Solostar] 10 unit SQ TID #3 unit Insulin Glargine,Hum.rec.anlog [Basaglar Kwikpen U-100] 20 unit SQ DAILY #2 units Pen Needle, Diabetic [Pen Needle] 1 each MC QID #100 units Continue Aspirin EC 81 mg [Ecotrin 81 mg] 81 mg PO DAILY Ferrous Sulfate [Iron] 325 mg PO DAILY Cholecalciferol (Vitamin D3) [D3-2000] 2,000 unit PO DAILY Biotin 5 mg PO DAILY Omeprazole 20 MG [Prilosec 20 mg] 20 mg PO DAILY Duloxetine HCl 30 mg [Cymbalta 30 MG Capsule] 30 mg PO DAILY lisinopriL [Lisinopril] 5 mg PO DAILY Multivit with Calcium,Iron,Min [Women's Daily Formula] 1 tab PO DAILY Discontinued Insulin Lispro [Admelog] 1 unit PO UD Follow up with: MARA COLE NP [Primary Care Provider] -
[2021-08-11] MEDS: Lantus Insulin SQ SCH (10:06)
[2021-08-11] MEDS: ECOTRIN 81 MG PO SCH (12:06)
[2021-08-11] MEDS: Zestril 5 MG PO SCH (12:06)
[2021-08-11] MEDS: Cymbalta 30 MG Capsule PO SCH (12:06)
[2021-08-11] MEDS: Protonix 40MG Tablet PO SCH (12:07)
[2021-08-11] MEDS: HUMALOG SQ PRN ×3 (12:32→20:52)
[2021-08-11 16:18] LABS: ANION GAP 9.6 MEQ/L (5-15); BLOOD UREA NITROGEN 23 mg/dL (7-17); CHLORIDE 97 mmol/L (98-107); Calcium 8.4 mg/dL (8.4-10.2); Carbon Dioxide 30 mmol/L (22-30); Creatinine 1 0.59 mg/dL (0.52-1.04); EST GLOMERULAR FILTRATION RATE > 60.0 ML/MIN; Glucose 159 mg/dL (74-106); Potassium 4.7 mmol/L (3.5-5.1); SODIUM 133 mmol/L (137-145)
[2021-08-11 16:21] LABS: BLOOD UREA NITROGEN 25 mg/dL (7-17); CHLORIDE 95 mmol/L (98-107); Calcium 8.8 mg/dL (8.4-10.2); Carbon Dioxide 29 mmol/L (22-30); EST GLOMERULAR FILTRATION RATE > 60.0 ML/MIN; Glucose 189 mg/dL (74-106); Potassium 5.1 mmol/L (3.5-5.1); SODIUM 131 mmol/L (137-145)
[2021-08-11] MEDS: Sodium Chloride 0.9% W/ 20 mEq KCl/LITER 1,000 ML IV SCH (16:59)
[2021-08-12] MEDS: Sodium Chloride 0.9% W/ 20 mEq KCl/LITER 1,000 ML IV SCH (03:05)
[2021-08-12] MEDS: Lantus Insulin SQ SCH (08:26)
--- NOTE | 2021-08-12 08:28 | PCM.DS ---
Discharge Summary Date of Admission: 08/11/21 03:05 Admitting Physician: SCOTT DELANEY Primary Care Provider: MARA COLE Allergies Allergies latex Allergy (Verified 08/10/21 23:20) Hospital Summary - Hospital Course Hospital Course: patient was admitted with hyperglycemia and vomiting, early DKA due to insulin pump malfunction. she is tolerating po intake and feels well today, no problems or concerns. - Vitals & Intake/Output Vital Signs: Vital Signs Temperature 97.1 F 08/12/21 07:56 Pulse Rate 81 08/12/21 07:56 Respiratory Rate 16 08/12/21 08:00 Blood Pressure 127/70 08/12/21 07:56 O2 Sat by Pulse Oximetry 96 08/12/21 07:56 Intake & Output: Intake & Output 08/09/21 08/10/21 08/11/21 08/12/21 11:59 11:59 11:59 11:59 Intake Total 150 3381 Output Total 2300 Balance 150 1081 Weight 56.3 kg - Lab Result Diagrams: 08/11/21 04:20 08/11/21 16:08 Lab Results-Last 24 Hrs: Lab Results-Last 24 Hours 08/11/21 08/11/21 08/11/21 Range/Units 08:25 08:25 09:19 Sodium 136 L (137-145) mmol/L Potassium 3.8 (3.5-5.1) mmol/L Chloride 99 (98-107) mmol/L Carbon Dioxide 33 H (22-30) mmol/L Anion Gap 7.5 (5-15) MEQ/L BUN 23 H (7-17) mg/dL Creatinine 0.57 (0.52-1.04) mg/dL Estimated GFR > 60.0 ML/MIN Glucose 110 H (74-106) mg/dL POC Glucometer 70 L (74 to 106) mg/dL Calcium 8.7 (8.4-10.2) mg/dL Troponin I < 0.012 (0.000-0.034) ng/mL 08/11/21 08/11/21 08/11/21 Range/Units 10:06 10:54 12:00 Sodium 133 L (137-145) mmol/L Potassium 4.7 D (3.5-5.1) mmol/L Chloride 97 L (98-107) mmol/L Carbon Dioxide 30 (22-30) mmol/L Anion Gap 9.6 (5-15) MEQ/L BUN 23 H (7-17) mg/dL Creatinine 0.59 (0.52-1.04) mg/dL Estimated GFR > 60.0 ML/MIN Glucose 159 H (74-106) mg/dL POC Glucometer 110 H (74 to 106) mg/dL Calcium 8.4 (8.4-10.2) mg/dL Troponin I < 0.012 (0.000-0.034) ng/mL 08/11/21 08/11/21 08/11/21 Range/Units 12:04 15:43 16:08 Sodium 131 L (137-145) mmol/L Potassium 5.1 (3.5-5.1) mmol/L Chloride 95 L (98-107) mmol/L Carbon Dioxide 29 (22-30) mmol/L Anion Gap 12.0 (5-15) MEQ/L BUN 25 H (7-17) mg/dL Creatinine 0.80 (0.52-1.04) mg/dL Estimated GFR > 60.0 ML/MIN Glucose 189 H (74-106) mg/dL POC Glucometer 229 H 186 H (74 to 106) mg/dL Calcium 8.8 (8.4-10.2) mg/dL Troponin I (0.000-0.034) ng/mL 08/11/21 08/11/21 08/12/21 Range/Units 20:11 23:53 04:06 Sodium (137-145) mmol/L Potassium (3.5-5.1) mmol/L Chloride (98-107) mmol/L Carbon Dioxide (22-30) mmol/L Anion Gap (5-15) MEQ/L BUN (7-17) mg/dL Creatinine (0.52-1.04) mg/dL Estimated GFR ML/MIN Glucose (74-106) mg/dL POC Glucometer 233 H 75 115 H (74 to 106) mg/dL Calcium (8.4-10.2) mg/dL Troponin I (0.000-0.034) ng/mL 08/12/21 Range/Units 07:06 Sodium (137-145) mmol/L Potassium (3.5-5.1) mmol/L Chloride (98-107) mmol/L Carbon Dioxide (22-30) mmol/L Anion Gap (5-15) MEQ/L BUN (7-17) mg/dL Creatinine (0.52-1.04) mg/dL Estimated GFR ML/MIN Glucose (74-106) mg/dL POC Glucometer 100 (74 to 106) mg/dL Calcium (8.4-10.2) mg/dL Troponin I (0.000-0.034) ng/mL Micro Results-Entire Visit: Accuchecks Date 08/12/21 Date 08/11/21 Date 08/11/21 Date 08/11/21 Date 08/11/21 Time 07:56 Time 12:00 Time 10:08 Time 09:23 Time 07:54 Discharge Exam General Appearance: no apparent distress, alert Respiratory Exam: normal breath sounds, lungs clear, No respiratory distress Cardiovascular Exam: regular rate/rhythm, normal heart sounds Gastrointestinal/Abdomen Exam: soft, No tenderness, No mass Extremity Exam: normal inspection, normal range of motion Skin Exam: normal color, warm, dry Final Diagnosis/Problem List - Final Discharge Diagnosis/Problem (1) DKA (diabetic ketoacidosis) Current Visit: Yes Status: Acute Assessment & Plan: resolved, patient has a new insulin pump waiting on her at home that her supplier overnighted, she has plenty of insulin and supplies Code(s): E11.10 - TYPE 2 DIABETES MELLITUS WITH KETOACIDOSIS WITHOUT COMA (2) Ketonuria Current Visit: Yes Status: Acute Code(s): R82.4 - ACETONURIA - Discharge Disposition: Home, Self-Care Condition: Stable Prescriptions: New Pen Needle, Diabetic [Pen Needle] 1 each QID #100 units Insulin Lispro [Admelog] 100 unit SQ UD #1 Continue Aspirin EC 81 mg [Ecotrin 81 mg] 81 mg PO DAILY Ferrous Sulfate [Iron] 325 mg PO DAILY Cholecalciferol (Vitamin D3) [D3-2000] 2,000 unit PO DAILY Biotin 5 mg PO DAILY Omeprazole 20 MG [Prilosec 20 mg] 20 mg PO DAILY Duloxetine HCl 30 mg [Cymbalta 30 MG Capsule] 30 mg PO DAILY lisinopriL [Lisinopril] 5 mg PO DAILY Multivit with Calcium,Iron,Min [Women's Daily Formula] 1 tab PO DAILY Discontinued Insulin Lispro [Admelog] 1 unit PO UD Additional Instructions: resume admelog insulin pump at home, you do not need to black pickler the new prescriptions sent in yesterday. f/u with endocrinology within 1 week for recheck Follow up with: MARA COLE NP [Primary Care Provider] -
[2021-08-12] MEDS: Zestril 5 MG PO SCH (09:50)
[2021-08-12] MEDS: ECOTRIN 81 MG PO SCH (09:50)
[2021-08-12] MEDS: Cymbalta 30 MG Capsule PO SCH (09:50)
[2021-08-12] MEDS: Protonix 40MG Tablet PO SCH (09:50)
[2021-08-12] MEDS ORDERED: NON-FORMULARY ITEM (Omeprazole 20 Mg [Prilosec 20 Mg] 20 MG Capsule.Dr) PO SCH (10:00)
[2021-08-12] MEDS: HUMALOG SQ PRN (11:43)
[2021-08-12 11:47] VITALS: BP 115/55; PULSE 89; O2SAT 97
== END 2021-08-12 12:25 | disposition home or self-care (01) ==
LOC: ED 22:56 → ICU 08-11 03:05
PROVIDERS: ADMIT Family Medicine; ATTEND Family Medicine
DX: E11.10 Type 2 diabetes mellitus with ketoacidosis without coma (principal); R82.4 Acetonuria; Z79.899 Other long term (current) drug therapy; Z20.828 Contact with and (suspected) exposure to other viral communicable diseases
CPT/HCPCS: 0241U; 36000; 36415; 80048; 80053; 81015; 82805; 82947; 83735; 83930; 84100; 84484; 85025; 93005; 93041; 94760; 96374; 96375; 99285; 93268; J1815; J1817; J2405; A9270-GY; G0378

== ENCOUNTER 2021-12-09 12:59 | Observation (INO) | payer OTHER ==
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
[2021-12-09] MEDS ORDERED: Sodium Chloride 0.9% 1000 ML 1,000 ML IV STA ×2 (13:45→14:53)
[2021-12-09] MEDS ORDERED: HUMULIN R IV ONE ×2 (13:47→14:52)
[2021-12-09 13:50] LABS: Appearance SLIGHTLY CLOUDY (CLEAR)
[2021-12-09] MEDS ORDERED: Sodium Chloride 0.9% 1000 ML 1,000 ML ONE ×2 (13:50→15:03)
[2021-12-09] MEDS ORDERED: HUMULIN R ONE ×2 (13:50→15:03)
[2021-12-09 13:51] LABS: Bilirubin NEGATIVE (NEGATIVE); Dipstick done @ ? MAIN LAB; Glucose >=1000 mg/dL (NEGATIVE); Ketones LARGE-80 (NEGATIVE); Nitrite POSITIVE (NEGATIVE); Protein,Urine Dip NEGATIVE (Negative); RBC MODERATE Ery/ul (0-5); Urobilinogen 0.2 mg/dL (0-1)
[2021-12-09 13:51] LABS: Absolute Neutrophil Ct (ANC) 7.97 x10^3/uL (1.4-6.9); Basophil (Absolute #) 0.09 x10^3/uL (0-0.4); Eosinophil % 4.6 % (0.00-5.0); Eosinophil (Absolute #) 0.49 x10^3/uL (0-0.5); Hematocrit 38.1 % (35-47); Mean Cell Volume 88.2 fL (78-100); Mean Corpuscular Hemoglobin 27.8 pg (26-32); Mean Corpuscular Hgb Concent. 31.5 g/dL (32-36); Mean Platelet Volume 10.1 fL (7.5-11.0); Monocyte (Absolute #) 0.58 x10^3/uL (0.0-1.3); Monocytes % 5.4 % (0.0-12.0); Neutrophil % 74.7 % (36.0-66.0); Platelet Count 482 x10^3/uL (150-450); Red Blood Count 4.32 x10^6/uL (4.1-5.4); Red Cell Distribution Width 13.6 % (11.5-14.0); White Blood Count 10.7 x10^3/uL (4.0-10.5)
[2021-12-09 13:52] LABS: Bacteria FEW /HPF (NEGATIVE); Epithelial Cells RARE /HPF (FEW); Mucus SLIGHT /HPF (NEGATIVE); Urine Cultured Indicated? YES; WBC >100 /HPF (0-5)
[2021-12-09 14:06] LABS: ALBUMIN 4.4 g/dL (3.5-5.0); ALKALINE PHOSPHATASE 243 U/L (38-126); ANION GAP 26.9 MEQ/L (5-15); BLOOD UREA NITROGEN 28 mg/dL (7-17); CHLORIDE 86 mmol/L (98-107); Calcium 9.5 mg/dL (8.4-10.2); Carbon Dioxide 21 mmol/L (22-30); EST GLOMERULAR FILTRATION RATE > 60.0 ML/MIN; Potassium 5.2 mmol/L (3.5-5.1); SGOT/AST 26 U/L (14-36); SGPT/ALT 21 U/L (0-35); SODIUM 128 mmol/L (137-145); Total Protein 7.9 g/dL (6.3-8.2)
[2021-12-09 14:24] LABS: Glucose 738 mg/dL (74-106)
[2021-12-09] MEDS ORDERED: HUMULIN R 100 UNIT in Sodium Chloride 0.9% 100 ML IV ONE (15:30)
[2021-12-09 15:38] LABS: INFLUENZA A NEGATIVE (NEGATIVE); INFLUENZA B NEGATIVE (NEGATIVE); RESPIRATORY SYNCTIAL VIRUS NEGATIVE (Negative); SARS-CoV-2 Xpert Express NEGATIVE (NEGATIVE)
[2021-12-09] MEDS ORDERED: HUMULIN R 100 UNIT in Sodium Chloride 0.9% 100 ML IV PRN (15:39)
[2021-12-09] MEDS ORDERED: ROCEPHIN 1 Gm-D5w 50 ml Bag** 1 G/50 ML IVPB IV STA (15:51)
[2021-12-09] MEDS ORDERED: ROCEPHIN 1 Gm-D5w 50 ml Bag** 1 G/50 ML IVPB IV ONE (15:53)
[2021-12-09] MEDS ORDERED: Zofran 4 MG/2 ML VIAL IV PRN (16:39)
[2021-12-09] MEDS ORDERED: TYLENOL 325 MG PO PRN (16:39)
[2021-12-09] MEDS ORDERED: Sodium Chloride 0.9% 1000 ML 1,000 ML IV SCH (17:00)
[2021-12-09 19:42] LABS: ANION GAP 10.4 MEQ/L (5-15); BLOOD UREA NITROGEN 25 mg/dL (7-17); CHLORIDE 97 mmol/L (98-107); Calcium 8.4 mg/dL (8.4-10.2); Carbon Dioxide 29 mmol/L (22-30); EST GLOMERULAR FILTRATION RATE > 60.0 ML/MIN; Glucose 380 mg/dL (74-106); Potassium 4.6 mmol/L (3.5-5.1); SODIUM 132 mmol/L (137-145)
[2021-12-09] MEDS: Sodium Chloride 0.9% 1000 ML 1,000 ML IV SCH (22:03)
[2021-12-09 23:43] LABS: ANION GAP 9.1 MEQ/L (5-15); BLOOD UREA NITROGEN 24 mg/dL (7-17); CHLORIDE 102 mmol/L (98-107); Calcium 8.2 mg/dL (8.4-10.2); Carbon Dioxide 28 mmol/L (22-30); Creatinine 1 0.54 mg/dL (0.52-1.04); EST GLOMERULAR FILTRATION RATE > 60.0 ML/MIN; Glucose 192 mg/dL (74-106); Potassium 4.4 mmol/L (3.5-5.1); SODIUM 134 mmol/L (137-145)
[2021-12-10] MEDS: Sodium Chloride 0.9% 1000 ML 1,000 ML IV SCH (02:52)
[2021-12-10 04:54] LABS: Absolute Neutrophil Ct (ANC) 8.26 x10^3/uL (1.4-6.9); Basophil (Absolute #) 0.11 x10^3/uL (0-0.4); Eosinophil (Absolute #) 1.08 x10^3/uL (0-0.5); Hematocrit 34.5 % (35-47); Hemoglobin 11.2 g/dL (12.0-16.0); Lymphocyte (Absolute #) 3.01 x10^3/uL (1.0-4.6); Lymphocytes % 22.4 % (24.0-44.0); Mean Cell Volume 84.8 fL (78-100); Mean Corpuscular Hemoglobin 27.5 pg (26-32); Mean Corpuscular Hgb Concent. 32.5 g/dL (32-36); Mean Platelet Volume 9.3 fL (7.5-11.0); Monocyte (Absolute #) 0.93 x10^3/uL (0.0-1.3); Monocytes % 6.9 % (0.0-12.0); Neutrophil % 61.6 % (36.0-66.0); Platelet Count 464 x10^3/uL (150-450); Red Blood Count 4.07 x10^6/uL (4.1-5.4); White Blood Count 13.4 x10^3/uL (4.0-10.5)
[2021-12-10] MEDS ORDERED: MEDICATION INTERVENTION MC SCH (07:45)
[2021-12-10] MEDS: HUMALOG SQ PRN ×2 (08:30→12:01)
[2021-12-10] MEDS ORDERED: Zestril 10 MG PO SCH (10:00)
[2021-12-10] MEDS ORDERED: [UNRECOGNIZED DRUG - OTHER] PO SCH (10:00)
[2021-12-10] MEDS ORDERED: NON-FORMULARY ITEM (Omeprazole 20 Mg [Prilosec 20 Mg] 20 MG Capsule.Dr) PO SCH (10:00)
[2021-12-10] MEDS ORDERED: ECOTRIN 81 MG PO SCH (10:00)
[2021-12-10] MEDS ORDERED: BIOTIN 5 MG PO SCH (10:00)
[2021-12-10] MEDS ORDERED: ROCEPHIN 1 Gm-D5w 50 ml Bag** 1 G/50 ML IVPB IV SCH (10:00)
[2021-12-10] MEDS ORDERED: THERAGRAN MULTIVITAMIN PO SCH (10:00)
[2021-12-10] MEDS ORDERED: CHOLECALCIFEROL 2000 UNIT PO SCH (10:00)
[2021-12-10] MEDS ORDERED: Cymbalta 30 MG Capsule PO SCH (10:00)
[2021-12-10] MEDS ORDERED: Lantus Insulin SQ SCH (10:00)
[2021-12-10] MEDS ORDERED: Zestril 5 MG PO SCH (10:00)
[2021-12-10] MEDS ORDERED: Protonix 20MG Tablet PO SCH (10:00)
[2021-12-10] MEDS ORDERED: FEOSOL 325 MG PO SCH (10:00)
[2021-12-10] MEDS ORDERED: MULTIVIT WITH CALCIUM IRON MIN PO SCH (10:00)
[2021-12-10] MEDS ORDERED: VITAMIN D PO SCH (10:00)
[2021-12-10 11:28] VITALS: BP 125/65; PULSE 92; O2SAT 96
== END 2021-12-10 13:50 | disposition home or self-care (01) ==
LOC: ED 12:59 → INTOOBSV 16:31 → ICU 16:31
PROVIDERS: ADMIT Family Medicine; ATTEND Family Medicine
DX: E11.10 Type 2 diabetes mellitus with ketoacidosis without coma (principal); N39.0 Urinary tract infection, site not specified; I10 Essential (primary) hypertension; D64.9 Anemia, unspecified; Z79.899 Other long term (current) drug therapy; Z20.828 Contact with and (suspected) exposure to other viral communicable diseases; Z79.4 Long term (current) use of insulin; Z96.41 Presence of insulin pump (external) (internal)
CPT/HCPCS: 0241U; 36000; 36415; 80048; 80053; 81015; 82947; 83605; 83735; 85025; 87077; 87086; 87186; 93041; 93268; 96360; 96361; 96365; 96374; 96376; 99284; 99291; G0378; J0696; J1815; J1817